=== PATIENT | female | born 1990 ===

== ENCOUNTER 2022-10-10 04:15 | Inpatient (IN) | payer OTHER ==
[2022-10-10] MEDS ORDERED: ELECTROLYTE-148 SOLN 500 ML IV ONE (05:00)
[2022-10-10] MEDS ORDERED: OXYTOCIN 20 UNITS in 0.9% NS 20 UNIT/1,000 ML INFUS.BAG IV ONE (05:09)
[2022-10-10] MEDS ORDERED: ELECTROLYTE-148 SOLN 1,000 ML IV SCH ×2 (05:30→06:45)
[2022-10-10 05:38] VITALS: BMI 42.0
[2022-10-10 06:07] LABS: BASO % 0.5 % (0-2.0); EOS % 0.5 % (0-4.5); HEMATOCRIT 39.8 % (32.4-45.2); HEMOGLOBIN 13.1 GM/dL (10.7-15.3); LYMPH % 14.1 % (8-40); MCH 29.3 pg (25.7-33.7); MCHC 33.1 g/dl (32.0-36.0); MEAN CELL VOLUME 88.5 fl (80-96); MEAN PLT VOLUME 9.8 fl (7.5-11.1); MONO % 10.4 % (3.8-10.2); NEUT % 74.5 % (42.8-82.8); PLATELET COUNT 170 10^3/uL (134-434); RBC 4.49 M/mm3 (3.60-5.2); RDW 15.7 % (11.6-15.6); WHITE BLOOD COUNT 14.8 K/mm3 (4.0-10.0)
[2022-10-10 06:26] LABS: POTASSIUM 4.2 mmol/L (3.5-5.1)
[2022-10-10] MEDS ORDERED: FENTANYL/BUPIVACAINE/NS/PF - PCEA - 50 ML DISP.SYRIN EP ONE (06:27)
[2022-10-10 06:28] LABS: CALCIUM 8.8 mg/dL (8.5-10.1)
[2022-10-10 06:29] LABS: BLOOD UREA NITROGEN 7.3 mg/dL (7-18)
[2022-10-10 06:31] LABS: INR 0.97 (0.83-1.09); PROTHROMBIN TIME (PATIENT) 11.2 SEC (9.7-13.0)
[2022-10-10 06:32] LABS: CREATININE 0.4 mg/dL (0.55-1.3)
[2022-10-10 06:34] LABS: ACTIVATED PTT 26.6 SECONDS (25.2-36.5)
[2022-10-10] MEDS ORDERED: NALOXONE HCL 0.4 MG/ML VIAL IVPUSH PRN (06:42)
[2022-10-10] MEDS ORDERED: LIDO 2%/EPI 1:200000 PRESRVFRE (20 ML SDVIAL) ONE (06:43)
[2022-10-10] MEDS ORDERED: BUPIVACAINE HCL/PF 0.25% (2.5MG/ML) 10 ML VIAL ONE (06:43)
[2022-10-10] MEDS ORDERED: OXYTOCIN 30 UNITS in 0.9% NS 30 UNIT/500 ML INFUS.BAG IVPB SCH (06:45)
[2022-10-10] MEDS ORDERED: FENTANYL/BUPIVACAINE/NS/PF - PCEA - 50 ML DISP.SYRIN EP SCH (06:45)
[2022-10-10] MEDS ORDERED: OXYTOCIN 30 UNITS in 0.9% NS 30 UNIT/500 ML INFUS.BAG IVPB ONE (07:32)
[2022-10-10 08:04] LABS: SYPHILIS W/ RPR CONF NON-REACTIVE (NONREACTIVE)
[2022-10-10 08:33] LABS: HIV INTERPRETATION NEGATIVE (NEGATIVE)
[2022-10-10] MEDS ORDERED: WITCH HAZEL 50% (TUCKS) 40 PAD/JAR PAD TP PRN (09:48)
[2022-10-10] MEDS ORDERED: METHYLERGONOVINE MALEATE 0.2 MG/1 ML AMP IM PRN (09:48)
[2022-10-10] MEDS ORDERED: oxyCODONE HCL 5 MG TABLET PO PRN (09:48)
[2022-10-10] MEDS ORDERED: BISACODYL 10 MG SUPP.RECT RC PRN (09:48)
[2022-10-10] MEDS ORDERED: ACETAMINOPHEN 325 MG TABLET (FP) PO PRN (09:48)
[2022-10-10] MEDS ORDERED: BENZOCAINE 20% 57 GM BOTTLE TP PRN (09:48)
[2022-10-10] MEDS ORDERED: BENZOCAINE 28 GM HEMORRHOIDAL OINTMENT TP PRN (09:48)
[2022-10-10] MEDS: FERROUS SO4 325 MG TABLET (FP) PO SCH (10:00)
[2022-10-10] MEDS ORDERED: OXYTOCIN 20 UNITS in 0.9% NS 20 UNIT/1,000 ML INFUS.BAG IV SCH (10:00)
[2022-10-10] MEDS: PRENATAL VITAMINS W/ FOLIC ACID TABLET (FP) PO SCH (10:14)
[2022-10-10] MEDS ORDERED: IBUPROFEN 600 MG TABLET (FP) PO ONE (11:09)
[2022-10-10] MEDS: IBUPROFEN 600 MG TABLET (FP) PO PRN ×2 (11:10→17:08)
[2022-10-11] MEDS: IBUPROFEN 600 MG TABLET (FP) PO PRN (01:38)
[2022-10-11 06:59] LABS: BASO % 0.4 % (0-2.0); EOS % 1.4 % (0-4.5); HEMATOCRIT 36.1 % (32.4-45.2); HEMOGLOBIN 11.8 GM/dL (10.7-15.3); MCH 29.4 pg (25.7-33.7); MCHC 32.6 g/dl (32.0-36.0); MEAN CELL VOLUME 90.1 fl (80-96); MEAN PLT VOLUME 9.8 fl (7.5-11.1); NEUT % 72.2 % (42.8-82.8); PLATELET COUNT 159 10^3/uL (134-434); RDW 15.5 % (11.6-15.6); WHITE BLOOD COUNT 12.6 K/mm3 (4.0-10.0)
[2022-10-11] MEDS: FERROUS SO4 325 MG TABLET (FP) PO SCH (08:01)
[2022-10-11] MEDS: PRENATAL VITAMINS W/ FOLIC ACID TABLET (FP) PO SCH (09:35)
[2022-10-11] MEDS ORDERED: SENNOSIDES/DOCUSATE COMBO (SENNA PLUS) TABLET (UD) PO PRN (22:00)
[2022-10-11 22:10] VITALS: RESP 17
[2022-10-11 22:13] VITALS: TEMP 98.1
[2022-10-12 08:15] VITALS: BP 106/61; PULSE 78
[2022-10-12] MEDS: FERROUS SO4 325 MG TABLET (FP) PO SCH (08:24)
[2022-10-12] MEDS: PRENATAL VITAMINS W/ FOLIC ACID TABLET (FP) PO SCH (09:24)
== END 2022-10-12 12:15 | disposition home or self-care (01) | DRG 560 ==
LOC: JDEL 04:15 → JLDR 04:45 → J3W 11:42
PROVIDERS: ADMIT Obstetrics & Gynecology; ATTEND Obstetrics & Gynecology
DX: O80 Encounter for full-term uncomplicated delivery (principal); Z3A.39 39 weeks gestation of pregnancy; Z37.0 Single live birth
CPT/HCPCS: 36415; 80048; 85025; 85610; 85730; 86780; 86850; 86900; 86901; 87389